=== PATIENT | male | born 1980 ===

== ENCOUNTER 2017-05-19 00:34 | Emergency (ER) | payer OTHER ==
[2017-05-19 01:31] VITALS: BP 133/88; PULSE 76; RESP 16; TEMP 98; O2SAT 98
[2017-05-19] MEDS ORDERED: Amoxicillin-Clav 875-125 mg Tab PO STA (03:25)
--- NOTE | 2017-05-19 03:27 | ED PDOC ---
HPI: Dental Pain/Injury Time Seen by Provider: 05/19/17 02:59 Chief Complaint (Nursing): Dental Pain Chief Complaint (Provider): toothache History Per: Patient History/Exam Limitations: no limitations Onset/Duration Of Symptoms: Hrs Current Symptoms Are (Timing): Still Present Additional History Per: Patient Additional Complaint(s): 37 y/o male presents with left upper toothache x 6 hours. Denies fever, difficulty speaking/swallowing, mouth trauma. No medication for pain relief thus far. Past Medical History Reviewed: Historical Data, Nursing Documentation, Vital Signs Vital Signs: Last Vital Signs Temp 98.0 F 05/19/17 01:26 Pulse 76 05/19/17 01:26 Resp 16 05/19/17 01:26 BP 133/88 05/19/17 01:26 Pulse Ox 98 05/19/17 01:26 - Medical History PMH: No Chronic Diseases - Surgical History Surgical History: No Surg Hx - Family History Family History: States: No Known Family Hx - Home Medications Home Medications: Ambulatory Orders Medication Instructions Recorded Amoxicillin/Clavulanate [Augmentin 1 tab PO Q12 #13 tab 05/19/17 875 MG-125 MG] Ibuprofen [Motrin Tab] 800 mg PO Q8 PRN #20 tab 05/19/17 - Allergies Allergies/Adverse Reactions: Allergies Allergy/AdvReac Type Severity Reaction Status Date / Time No Known Allergies Allergy Verified 05/19/17 01:31 Review of Systems ROS Statement: Except As Marked, All Systems Reviewed And Found Negative ENT: Positive for: Mouth Pain Physical Exam - Reviewed Nursing Documentation Reviewed: Yes Vital Signs Reviewed: Yes - Physical Exam Appears: Positive for: Well, Non-toxic, No Acute Distress Head Exam: Positive for: ATRAUMATIC, NORMAL INSPECTION, NORMOCEPHALIC Skin: Positive for: Normal Color Eye Exam: Positive for: Normal appearance ENT: Positive for: Other (+dental decay left upper first premolar. + surrounding gum tenderness. No abscess formation. Airway patent) Cardiovascular/Chest: Positive for: Regular Rate, Rhythm Respiratory: Positive for: Normal Breath Sounds Neurologic/Psych: Positive for: Alert, Oriented - ECG O2 Sat by Pulse Oximetry: 98 - Progress ED Course And Treament: Toradol IM, augmentin PO Patient educated on findings, information for dental clinics given for follow up. Rx ibuprofen, augmentin provided. Return to ED for worsening/concerning symptoms. Disposition - Clinical Impression Clinical Impression: Dental caries, Toothache - Patient ED Disposition Is Patient to be Admitted: No Counseled Patient/Family Regarding: Diagnosis, Need For Followup, Rx Given - Disposition Disposition: Routine/Home Disposition Time: 03:41 Condition: IMPROVED Prescriptions: Amoxicillin/Clavulanate [Augmentin 875 MG-125 MG] 1 tab PO Q12 #13 tab Ibuprofen [Motrin Tab] 800 mg PO Q8 PRN #20 tab PRN Reason: Pain, Moderate (4-7) Instructions: Dental Caries (ED), Toothache (ED)
[2017-05-19] MEDS ORDERED: Amoxicillin-Clav 875-125 mg Tab PO ONE (03:29)
== END 2017-05-19 04:08 | disposition home or self-care (01) ==
LOC: H.ER 00:34
DX: K02.9 Dental caries, unspecified (principal)
CPT/HCPCS: 96372; 99282; J1885

== ENCOUNTER 2017-09-24 21:47 | Emergency (ER) | payer OTHER ==
[2017-09-24 22:36] VITALS: BP 135/87; PULSE 90; RESP 16; TEMP 97.6; O2SAT 98
--- NOTE | 2017-09-24 23:08 | ED PDOC ---
HPI: General Adult Time Seen by Provider: 09/24/17 22:38 Chief Complaint (Nursing): Dental Pain History Per: Patient Additional Complaint(s): Pt. states since 1600 today he's had L upper toothache. States he has not seen a dentist in several years. Denies trauma, fever. Past Medical History Reviewed: Historical Data, Nursing Documentation, Vital Signs Vital Signs: Last Vital Signs Temp 97.6 F 09/24/17 22:34 Pulse 90 09/24/17 22:34 Resp 16 09/24/17 22:34 BP 135/87 09/24/17 22:34 Pulse Ox 98 09/24/17 22:34 - Family History Family History: States: No Known Family Hx - Home Medications Home Medications: Ambulatory Orders Medication Instructions Recorded Amoxicillin/Clavulanate [Augmentin 1 tab PO Q12 #13 tab 05/19/17 875 MG-125 MG] Ibuprofen [Motrin Tab] 800 mg PO Q8 PRN #20 tab 05/19/17 Amoxicillin/Clavulanate [Augmentin 1 tab PO Q8 #30 tab 09/24/17 500 MG-125 MG] Naproxen [Naprosyn] 500 mg PO BID PRN #14 tab 09/24/17 - Allergies Allergies/Adverse Reactions: Allergies Allergy/AdvReac Type Severity Reaction Status Date / Time No Known Allergies Allergy Verified 05/19/17 01:31 Review of Systems ROS Statement: Except As Marked, All Systems Reviewed And Found Negative Physical Exam - Physical Exam Appears: Positive for: Well, Non-toxic, No Acute Distress Skin: Positive for: Normal Color, Warm. Negative for: Rash ENT: Positive for: Other (L maxillary lateral incisor minimal gingival swelling with moderate erythema but no discharge ) - ECG O2 Sat by Pulse Oximetry: 98 - Progress ED Course And Treament: Toradol 30mg IM ordered. Disposition - Clinical Impression Clinical Impression: Dental infection - Patient ED Disposition Is Patient to be Admitted: No - Disposition Referrals: [facility] Disposition: Routine/Home Disposition Time: 23:08 Condition: STABLE Additional Instructions: Follow up with dentist for further evaluation. Prescriptions: Amoxicillin/Clavulanate [Augmentin 500 MG-125 MG] 1 tab PO Q8 #30 tab Naproxen [Naprosyn] 500 mg PO BID PRN #14 tab PRN Reason: Pain Instructions: Toothache (ED)
== END 2017-09-24 23:37 | disposition home or self-care (01) ==
LOC: H.ER 21:47
DX: K04.7 Periapical abscess without sinus (principal)
CPT/HCPCS: 96372; 99282; J1885

== ENCOUNTER 2018-02-08 00:54 | Emergency (ER) | payer OTHER ==
[2018-02-08 01:15] VITALS: BMI 28.8
[2018-02-08 01:18] VITALS: RESP 16; TEMP 97.6
--- NOTE | 2018-02-08 01:23 | ED PDOC ---
HPI: Chest Pain Time Seen by Provider: 02/08/18 01:08 Chief Complaint (Nursing): Chest Pain Chief Complaint (Provider): Cough, left sided chest pain History Per: Patient History/Exam Limitations: no limitations Onset/Duration Of Symptoms: Days Current Symptoms Are (Timing): Still Present Severity: Moderate Quality: Dull Associated Symptoms: denies: Nausea, Dyspnea, Diaphoresis, Syncope Additional Complaint(s): 37 yo male with no medial problems and a pack a day smoker presents with 3 days of cough and chest pain. Pt states initially it was only when coughing but now it is more constant and worse with movement. Pt states he has yellow phlegm. Pt denies fever/chills. States he took nyquil which did not help. Past Medical History Reviewed: Historical Data, Nursing Documentation, Vital Signs Vital Signs: Last Vital Signs Temp 97.6 F 02/08/18 01:15 Pulse 75 02/08/18 01:15 Resp 16 02/08/18 01:15 BP 126/85 02/08/18 01:15 Pulse Ox 98 02/08/18 01:24 - Medical History PMH: No Chronic Diseases - Surgical History Surgical History: No Surg Hx - Family History Family History: States: No Known Family Hx - Living Arrangements Living Arrangements: With Family - Social History Current smoker - smoking cessation education provided: No Alcohol: None - Home Medications Home Medications: Ambulatory Orders Medication Instructions Recorded Amoxicillin/Clavulanate [Augmentin 1 tab PO Q12 #13 tab 05/19/17 875 MG-125 MG] Ibuprofen [Motrin Tab] 800 mg PO Q8 PRN #20 tab 05/19/17 Amoxicillin/Clavulanate [Augmentin 1 tab PO Q8 #30 tab 09/24/17 500 MG-125 MG] Naproxen [Naprosyn] 500 mg PO BID PRN #14 tab 09/24/17 Azithromycin 250 mg PO DAILY #6 tab 02/08/18 - Allergies Allergies/Adverse Reactions: Allergies Allergy/AdvReac Type Severity Reaction Status Date / Time No Known Allergies Allergy Verified 02/08/18 01:15 Review of Systems ROS Statement: Except As Marked, All Systems Reviewed And Found Negative Constitutional: Negative for: Fever, Chills Cardiovascular: Positive for: Chest Pain Respiratory: Positive for: Cough. Negative for: Shortness of Breath Gastrointestinal: Negative for: Nausea, Vomiting, Abdominal Pain Physical Exam - Reviewed Nursing Documentation Reviewed: Yes Vital Signs Reviewed: Yes - Physical Exam Appears: Positive for: Well, Non-toxic, No Acute Distress Head Exam: Positive for: ATRAUMATIC, NORMAL INSPECTION, NORMOCEPHALIC Skin: Positive for: Normal Color, Warm, DRY Eye Exam: Positive for: Normal appearance ENT: Positive for: Normal ENT Inspection Neck: Positive for: Normal, Painless ROM Cardiovascular/Chest: Positive for: Regular Rate, Rhythm Respiratory: Positive for: Rhonchi (Left lower ). Negative for: Accessory Muscle Use Back: Positive for: Normal Inspection Extremity: Positive for: Normal ROM Neurologic/Psych: Positive for: Alert, Oriented - Laboratory Results Result Diagrams: 02/08/18 01:50 02/08/18 01:50 - ECG O2 Sat by Pulse Oximetry: 98 Disposition - Clinical Impression Clinical Impression: Respiratory infection - Disposition Disposition: Routine/Home Disposition Time: 02:45 Condition: STABLE Prescriptions: Azithromycin 250 mg PO DAILY #6 tab Instructions: Bacterial Upper Respiratory Infection, Adult Forms: [facility] ([place]), [facility] ED School/Work Excuse
[2018-02-08 01:53] LABS: BASO % 0.2 % (0.0-2.0); EOS # 0.3 K/uL (0.0-0.7); EOS % 2.1 % (0.0-4.0); LYMPH # 4.4 K/uL (1.0-4.3); LYMPH % 36.4 % (20.0-40.0); MEAN CELL VOLUME 92.4 fl (80.0-94.0); MEAN CORPUSCULAR HEMOGLOBIN 31.4 pg (27.0-31.0); MEAN PLATELET VOLUME 8.4 fl (7.2-11.7); MONO # 1.1 K/uL (0.0-0.8); MONO % 9.5 % (0.0-10.0); NEUT # 6.2 K/uL (1.8-7.0); NEUT % 51.8 % (50.0-75.0); RBC 4.79 Mil/uL (4.40-5.90); RED CELL DISTRIBUTION WIDTH 13.3 % (11.5-14.5)
[2018-02-08 02:04] LABS: ALB/GLOB RATIO 1.2 (1.0-2.1); ALBUMIN 4.1 g/dL (3.5-5.0); ALT/SGPT 41 U/L (21-72); AST/SGOT 24 U/L (17-59); BLOOD UREA NITROGEN 26 mg/dl (9-20); CALCIUM 8.9 mg/dL (8.4-10.2); GFR AFRICAN-AMERICAN > 60; GFR NON-AFRICAN AMERICAN > 60
[2018-02-08 02:59] VITALS: BP 120/82; PULSE 82; O2SAT 99
--- NOTE | 2018-02-08 08:36 | RAD ---
HISTORY: LLL rhonchi, cough COMPARISON: No prior. TECHNIQUE: Chest PA and lateral FINDINGS: LUNGS: No active pulmonary disease. PLEURA: No significant pleural effusion identified. No pneumothorax apparent. CARDIOVASCULAR: Normal. OSSEOUS STRUCTURES: No significant abnormalities. VISUALIZED UPPER ABDOMEN: Normal. OTHER FINDINGS: Apparent nipple rings are suggested in place in the anterior chest bilaterally. IMPRESSION: No acute cardiopulmonary disease appreciated.
--- NOTE | 2018-02-08 09:36 | CARD ---
APPROVED REPORT EKG Measurement Heart [id number] <Conclusion> Normal sinus rhythm Left axis deviation Abnormal ECG
== END 2018-02-08 02:58 | disposition home or self-care (01) ==
LOC: H.ER 00:54
DX: J06.9 Acute upper respiratory infection, unspecified (principal)